=== PATIENT | male | born 1990 | race Caucasian/White ===

== ENCOUNTER 2018-07-09 18:59 | Emergency (ER) | payer SELFPAY ==
[2018-07-09 20:01] VITALS: BP 144/81
--- NOTE | 2018-07-09 20:16 | UC ---
Skin Complaint HPI - HPI Summary HPI Summary: Pt c/o of worsening tender lump at top of gluteal fold X 3 days. - History of Current Complaint Chief Complaint: UCSkin Time Seen by Provider: 07/09/18 20:10 Stated Complaint: SKIN CONCERN Hx Obtained From: Patient Onset/Duration: Gradual Onset, Lasting Days, Still Present, Worse Since - onset Skin Exposure Onset/Duration: Days Ago Onset Severity: Mild Current Severity: Moderate Pain Intensity: 3 Location: Discrete - upper gluteal fold Character: Pain, Redness, Raised, Painful Aggravating Factor(s): Touch Alleviating Factor(s): Nothing Associated Signs & Symptoms: Positive: Negative - Allergy/Home Medications Allergies/Adverse Reactions: Allergies Allergy/AdvReac Type Severity Reaction Status Date / Time No Known Allergies Allergy Verified 07/09/18 19:54 Home Medications: Home Medications Acetaminophen [Tylenol Extra Strength] 1,000 mg PO Q6H PRN 07/09/18 [History Confirmed 07/09/18] Neomycn/Bacitrc/Polymyx/Pramox [Antibiotic + Pain Relief Oint] 28 gm TP DAILY PRN 07/09/18 [History Confirmed 07/09/18] PMH/Surg Hx/FS Hx/Imm Hx Previously Healthy: Yes - Surgical History Surgical History: None Surgery Procedure, Year, and Place: denies - Family History Known Family History: Positive: Other - father with multiple health issues - Social History Occupation: Employed Full-time Lives: With Family Alcohol Use: Rare Substance Use Type: None Smoking Status (MU): Former Smoker Type: eCigarettes Have You Smoked in the Last Year: No Review of Systems All Other Systems Reviewed And Are Negative: Yes Constitutional: Positive: Negative Skin: Positive: Other - tender raised area Eyes: Positive: Negative ENT: Positive: Negative Respiratory: Positive: Negative Cardiovascular: Positive: Negative Gastrointestinal: Positive: Negative Genitourinary: Positive: Negative Motor: Positive: Negative Neurovascular: Positive: Negative Musculoskeletal: Positive: Negative Neurological: Positive: Negative Psychological: Positive: Negative Is Patient Immunocompromised?: No Physical Exam Triage Information Reviewed: Yes Appearance: Well-Appearing, Pain Distress Vital Signs: Initial Vital Signs Temp 99.3 F 07/09/18 19:56 Pulse 101 07/09/18 19:56 Resp 22 07/09/18 19:56 BP 144/81 07/09/18 19:56 Pulse Ox 100 02/15/19 19:56 Vital Signs Reviewed: Yes Eye Exam: Normal ENT Exam: Normal Dental Exam: Normal Respiratory: Positive: No respiratory distress Musculoskeletal Exam: Normal Neurological Exam: Normal Psychological Exam: Normal Skin Exam: Other - pilonidal cyst left upper buttock gluteal fold Course/Dx - Course Course Of Treatment: I discussed follwoing up with a general surgeon and pt declined due to lack of insurance. - Differential Diagnoses - Skin Complaint Differential Diagnoses: Abscess - Diagnoses Provider Diagnosis: Pilonidal abscess of sahra cleft Discharge - Sign-Out/Discharge Documenting (check all that apply): Patient Departure All imaging exams completed and their final reports reviewed: No Studies - Discharge Plan Condition: Stable Disposition: HOME Prescriptions: Ibuprofen TAB* [Motrin TAB* 800 MG] 800 mg PO Q8H PRN #21 tab PRN Reason: Pain Sulfamethox/Trimethoprim DS* [Bactrim DS 800/160 TAB*] 1 tab PO Q12H #20 tab Patient Education Materials: Pilonidal Cyst (ED), Warm Compress or Soak (ED) Referrals: [facility] [Outside] - If Needed No Primary Care Phys,NOPCP [Primary Care Provider] - Additional Instructions: Please follow up with a PCP and please register for Health insurance - Billing Disposition and Condition Condition: STABLE Disposition: Home - Attestation Statements Provider Attestation: Per institutional requirements, I have reviewed the chart, however, I was not consulted specifically or made aware of this patient by the midlevel provider. I did not personally evaluate, interact with , or disposition this patient.
== END 2018-07-09 20:28 | disposition home or self-care (01) ==
LOC: UCCORT 18:59
DX: L05.01 Pilonidal cyst with abscess (principal); Z87.891 Personal history of nicotine dependence
CPT/HCPCS: 99212; G0463

== ENCOUNTER 2018-08-23 16:51 | Emergency (ER) | payer SELFPAY ==
[2018-08-23 17:20] VITALS: BP 137/75
--- NOTE | 2018-08-23 17:27 | UC ---
Skin Complaint HPI - HPI Summary HPI Summary: 27-year-old male presents with complaints of tender, red, inflamed area to his right upper inner arm that started 5 days ago. States it initially started as a small "pimple-like" area that has progressively worsened especially over the last 3 days. Patient has been doing some hot packing but noticed no drainage. States he has a long-standing history of recurrent folliculitis and has had a previous abscess to his buttocks that required drainage. No known history of MRSA. Denies fever or chills. - History of Current Complaint Chief Complaint: UCSkin Time Seen by Provider: 08/23/18 17:16 Stated Complaint: RIGHT ARM SKIN CONCERN Hx Obtained From: Patient Pain Intensity: 9 - Allergy/Home Medications Allergies/Adverse Reactions: Allergies Allergy/AdvReac Type Severity Reaction Status Date / Time No Known Allergies Allergy Verified 08/23/18 17:20 Home Medications: Home Medications Ibuprofen TAB* [Motrin TAB* 800 MG] 600 mg PO Q8H PRN 08/23/18 [History] PMH/Surg Hx/FS Hx/Imm Hx Previously Healthy: Yes - Denies significant PMH - Surgical History Surgical History: None Surgery Procedure, Year, and Place: denies - Family History Known Family History: Positive: Other - father with multiple health issues - Social History Occupation: Employed Full-time Lives: Alone Alcohol Use: Rare Substance Use Type: None Smoking Status (MU): Former Smoker Type: eCigarettes Have You Smoked in the Last Year: No Review of Systems All Other Systems Reviewed And Are Negative: Yes Constitutional: Negative: Fever, Chills Skin: Positive: Other - See HPI Respiratory: Positive: Negative Cardiovascular: Positive: Negative Gastrointestinal: Positive: Negative Genitourinary: Positive: Negative Musculoskeletal: Positive: Negative Neurological: Positive: Negative Is Patient Immunocompromised?: No Physical Exam - Summary Physical Exam Summary: GENERAL APPEARANCE: Well developed, well nourished, alert and cooperative, and appears to be in no acute distress. CARDIAC: Normal S1 and S2. No S3, S4 or murmurs. Rhythm is regular. There is no peripheral edema, cyanosis or pallor. Extremities are warm and well perfused. Capillary refill is less than 2 seconds. Peripheral pulses intact. LUNGS: Clear to auscultation without rales, rhonchi, wheezing or diminished breath sounds. ABDOMEN: Positive bowel sounds. Soft, nondistended, nontender. No guarding or rebound. No masses or hepatosplenomegally. MUSKULOSKELETAL: ROM intact to all extremities. No joint erythema or tenderness. Normal muscular development. Normal gait. SKIN: 6 cm x 5 cm tender, erythematous, indurated area to the right upper inner arm with a 3 cm x 2.5 cm area of fluctuance centrally. Triage Information Reviewed: Yes Vital Signs: Initial Vital Signs Temp 99.3 F 08/23/18 17:17 Pulse 83 08/23/18 17:17 Resp 16 08/23/18 17:17 BP 137/75 08/23/18 17:17 Pulse Ox 100 08/23/18 17:17 Vital Signs Reviewed: Yes Procedures - Procedure Summary Procedure Summary: PROCEDURE NOTE: Incision and drainage abscess right upper arm PROCEDURE: Informed consent was obtained and timeout protocol was performed prior to initiating the procedure. The skin was prepped with Betadine and the area draped in the usual manner. The site was anesthetized with 10 ml 2% lidocaine with epinephrine. A 1.5 cm linear incision was made and a large amount of purulent material expressed. A wound culture was obtained and sent. The abscess was explored thoroughly and sequestered pockets were opened using forceps. The abscess tracked medially towards the axilla approximately 4 cm. The wound was packed with 1/4 in plain gauze dressing. A bulky gauze dressing was then placed. Bleeding was minimal. The patient tolerated the procedure well without complications. Standard post- procedure care is explained and return precautions were given. Course/Dx - Course Course Of Treatment: 27-year-old male presents with complaints of tender, red, inflamed area to his right upper inner arm that started 5 days ago. States it initially started as a small "pimple-like" area that has progressively worsened especially over the last 3 days. Patient has been doing some hot packing but noticed no drainage. States he has a long-standing history of recurrent folliculitis and has had a previous abscess to his buttocks that required drainage. No known history of MRSA. Denies fever or chills. Afebrile. Vital signs stable. Exam was remarkable for a 6 cm x 5 cm area of erythema, induration, and tenderness with a 3 cm x 2.5 cm area of fluctuance located centrally to the right upper inner arm. An incision and drainage was performed and a large amount of purulent drainage was expressed from the wound. The wound was explored and the abscess was noted to track medially towards the axilla approximately 4-5 cm. A wound culture was obtained and is pending. The wound was packed with 1/4 inch sterile gauze and a bulky gauze dressing was placed over the wound. Will start the patient on Bactrim DS 1 tab twice a day 7 days. Patient is to return in 2 days for a wound check and to have the packing removed. Considering the size and depth of the abscess that may need to be repacked at that time. Wound care , anticipatory guidance, and warning symptoms requiring evaluation in the emergency room were all reviewed with the patient. Verbalizes understanding and agrees with plan of care. - Differential Diagnoses - Skin Complaint Differential Diagnoses: Abscess, Cellulitis, Contact Dermatitis, Local Allergic Reaction, MRSA, Tinea - Diagnoses Provider Diagnosis: Abscess of right arm Discharge - Sign-Out/Discharge Documenting (check all that apply): Patient Departure All imaging exams completed and their final reports reviewed: No Studies - Discharge Plan Condition: Stable Disposition: HOME Prescriptions: Sulfamethox/Trimethoprim DS* [Bactrim DS 800/160 TAB*] 1 tab PO BID #14 tab Patient Education Materials: Abscess (ED) Referrals: No Primary Care Phys,NOPCP [Primary Care Provider] - Additional Instructions: We performed an incision and drainage of an abscess from your right upper inner arm. A wound culture was obtained and sent to the lab to see what bacteria grows out and to make sure the antibiotic you will be prescribed is appropriate to treat the infection. We will contact you if there is any change in your plan of care. Start Bactrim DS 1 tab twice a day for 7 days. Be sure to complete the entire course unless directed otherwise. Take acetaminophen (Tylenol) or ibuprofen (Advil, Motrin) according to directions as needed for pain. Leave the dressing that was applied in the clinic today in place for the next 24 hours. If there is some bleeding through the dressing simply add some more gauze. After 24 hours, you may remove the dressing and shower as usual. Avoid submerging the wound under water. Keep a dressing on the wound to absorb any drainage. This should be changed at least once daily or any time it becomes wet or soiled. Gauze packing was placed into the wound to help keep it open and allow the infection to drain. If the packing falls out accidentally do NOT try to re- insert. Simply leave to wound open. Return in 2 days for a wound check and to have the packing removed. Due to the size and depth of the abscess you may need to have this repacked at that time to allow for additional drainage. Seek immediate medical attention in the emergency room if you develop fever greater than 100.5 F, have severe pain not managed with pain medication, redness that continues to spread, increased swelling, or any worsening of symptoms. - Billing Disposition and Condition Condition: STABLE Disposition: Home
[2018-08-23] MEDS ORDERED: Lidocaine 2% W/EPI 1:100,000* 20 ML MDV INJ ONE (17:39)
--- NOTE | 2018-08-25 07:15 | UC ---
- Progress Note Progress Note: + MRSA 3+ staph on bactrim await sensitivity no change aarti 08/25 Course/Dx - Diagnoses Provider Diagnoses: Abscess of right arm Discharge - Sign-Out/Discharge Documenting (check all that apply): Post-Discharge Follow Up All imaging exams completed and their final reports reviewed: No Studies - Discharge Plan Condition: Stable Disposition: HOME Prescriptions: Sulfamethox/Trimethoprim DS* [Bactrim DS 800/160 TAB*] 1 tab PO BID #14 tab Patient Education Materials: Abscess (ED) Referrals: No Primary Care Phys,NOPCP [Primary Care Provider] - Additional Instructions: We performed an incision and drainage of an abscess from your right upper inner arm. A wound culture was obtained and sent to the lab to see what bacteria grows out and to make sure the antibiotic you will be prescribed is appropriate to treat the infection. We will contact you if there is any change in your plan of care. Start Bactrim DS 1 tab twice a day for 7 days. Be sure to complete the entire course unless directed otherwise. Take acetaminophen (Tylenol) or ibuprofen (Advil, Motrin) according to directions as needed for pain. Leave the dressing that was applied in the clinic today in place for the next 24 hours. If there is some bleeding through the dressing simply add some more gauze. After 24 hours, you may remove the dressing and shower as usual. Avoid submerging the wound under water. Keep a dressing on the wound to absorb any drainage. This should be changed at least once daily or any time it becomes wet or soiled. Gauze packing was placed into the wound to help keep it open and allow the infection to drain. If the packing falls out accidentally do NOT try to re- insert. Simply leave to wound open. Return in 2 days for a wound check and to have the packing removed. Due to the size and depth of the abscess you may need to have this repacked at that time to allow for additional drainage. Seek immediate medical attention in the emergency room if you develop fever greater than 100.5 F, have severe pain not managed with pain medication, redness that continues to spread, increased swelling, or any worsening of symptoms. - Billing Disposition and Condition Condition: STABLE Disposition: Home
== END 2018-08-23 18:35 | disposition home or self-care (01) ==
LOC: UCCORT 16:51
DX: L02.413 Cutaneous abscess of right upper limb (principal); Z87.891 Personal history of nicotine dependence
CPT/HCPCS: 10060; 87070; 87077; 87186; 87205; 87640; 87641; 99212; G0463

== ENCOUNTER 2018-09-25 15:54 | Emergency (ER) | payer SELFPAY ==
[2018-09-25 16:08] VITALS: BP 147/104
--- NOTE | 2018-09-25 16:28 | UC ---
Skin Complaint HPI - HPI Summary HPI Summary: left side of neck , boil presenting for 4 days, tenderness at top left buttocks , for past 2 days. History of MRSA - History of Current Complaint Chief Complaint: UCSkin Time Seen by Provider: 09/25/18 16:10 Stated Complaint: SKIN CONCERN - NECK Hx Obtained From: Patient Onset/Duration: Gradual Onset, Lasting Weeks Skin Exposure Onset/Duration: Weeks Ago Timing: Constant Onset Severity: Mild Current Severity: Mild Pain Intensity: 3 Character: Pruritus, Redness, Raised, Painful Aggravating Factor(s): Nothing Alleviating Factor(s): Nothing - Allergy/Home Medications Allergies/Adverse Reactions: Allergies Allergy/AdvReac Type Severity Reaction Status Date / Time No Known Allergies Allergy Verified 09/25/18 16:08 PMH/Surg Hx/FS Hx/Imm Hx Previously Healthy: Yes - Surgical History Surgical History: None Surgery Procedure, Year, and Place: denies - Family History Known Family History: Positive: Other - father with multiple health issues No family h/o MRSA, Non-Contributory - Social History Alcohol Use: Rare Substance Use Type: None Smoking Status (MU): Former Smoker Type: eCigarettes Have You Smoked in the Last Year: No Review of Systems All Other Systems Reviewed And Are Negative: Yes Skin: Positive: Rash Eyes: Positive: Negative ENT: Positive: Negative Respiratory: Positive: Negative Cardiovascular: Positive: Negative Gastrointestinal: Positive: Negative Genitourinary: Positive: Negative Motor: Positive: Negative Neurovascular: Positive: Negative Musculoskeletal: Positive: Negative Neurological: Positive: Negative Psychological: Positive: Negative Is Patient Immunocompromised?: No Physical Exam Vital Signs: Initial Vital Signs Temp 98.9 F 09/25/18 16:03 Pulse 98 09/25/18 16:03 Resp 16 09/25/18 16:03 BP 147/104 09/25/18 16:03 Pulse Ox 100 09/25/18 16:03 Course/Dx - Course Course Of Treatment: hx obtained, exam performed ,meds reviewed, draining abscess on buttocks, folliculitis of arms, legs and buttocks noted. red sebaceous cyst on left side of neck, that has been draining as well. - Differential Diagnoses - Skin Complaint Differential Diagnoses: Abscess - Diagnoses Provider Diagnosis: Folliculitis, Sebaceous cyst, Abscess of buttock Discharge - Sign-Out/Discharge Documenting (check all that apply): Patient Departure All imaging exams completed and their final reports reviewed: No Studies - Discharge Plan Condition: Stable Disposition: HOME Prescriptions: Sulfamethox/Trimethoprim DS* [Bactrim DS 800/160 TAB*] 1 tab PO BID #14 tab Patient Education Materials: Folliculitis (ED), Epidermal Inclusion Cysts (ED) Referrals: No Primary Care Phys,NOPCP [Primary Care Provider] - Alyx Aldrich [Medical Doctor] - Additional Instructions: 1. take the medication as prescribed. 2. Use the benzoyl peroxide body wash for a few weeks to clear up the folliculitis as well as a light moisturizer 3. allow the skin to air dry completely after a shower. 4. Follow up with dermatology about the cyst on the neck - Billing Disposition and Condition Condition: STABLE Disposition: Home
== END 2018-09-25 16:36 | disposition home or self-care (01) ==
LOC: UCCORT 15:54
DX: L73.9 Follicular disorder, unspecified (principal); L72.3 Sebaceous cyst; L02.31 Cutaneous abscess of buttock; Z87.891 Personal history of nicotine dependence
CPT/HCPCS: 99212; G0463

== ENCOUNTER 2018-10-26 18:24 | Emergency (ER) | payer SELFPAY ==
[2018-10-26 18:48] VITALS: BP 150/100
[2018-10-26] MEDS ORDERED: Mupirocin 2% OINT* TUBE TOPICAL ONE (19:04)
--- NOTE | 2018-10-26 19:08 | UC ---
Skin Complaint HPI - HPI Summary HPI Summary: 28-year-old male comes in with a chief complaint of a skin infection the left elbow. He noticed a bump couple days ago as gotten bigger. It is painful when he pushes on it. Just prior to arrival scab on it which he took off and then he expressed quite a bit of pus and then eventually blood. No fevers or chills. Patient has a history of MRSA. He's been having some skin issues in the past but is not seen a tourist cabin keeper. He is interested in seeing a tourist cabin keeper. The past Bactrim has worked to cure the infection. - History of Current Complaint Chief Complaint: UCSkin Time Seen by Provider: 10/26/18 18:52 Stated Complaint: LEFT ARM SKIN ISSUE Pain Intensity: 7 - Allergy/Home Medications Allergies/Adverse Reactions: Allergies Allergy/AdvReac Type Severity Reaction Status Date / Time No Known Allergies Allergy Verified 10/26/18 18:45 PMH/Surg Hx/FS Hx/Imm Hx Previously Healthy: Yes - MRSA - Surgical History Surgical History: None Surgery Procedure, Year, and Place: denies - Family History Known Family History: Positive: Other - father with multiple health issues No family h/o MRSA, Non-Contributory - Social History Alcohol Use: Rare Substance Use Type: None Smoking Status (MU): Former Smoker Type: eCigarettes Have You Smoked in the Last Year: No Review of Systems All Other Systems Reviewed And Are Negative: Yes Constitutional: Positive: Negative Skin: Positive: Other - SEE HPI Eyes: Positive: Negative ENT: Positive: Negative Respiratory: Positive: Negative Cardiovascular: Positive: Negative Gastrointestinal: Positive: Negative Motor: Positive: Negative Neurovascular: Positive: Negative Musculoskeletal: Positive: Negative Neurological: Positive: Negative Psychological: Positive: Negative Is Patient Immunocompromised?: No Physical Exam Triage Information Reviewed: Yes Appearance: Well-Appearing, No Pain Distress, Well-Nourished Vital Signs: Initial Vital Signs Temp 99.6 F 10/26/18 18:46 Pulse 86 10/26/18 18:46 Resp 18 10/26/18 18:46 BP 150/100 10/26/18 18:46 Pulse Ox 99 10/26/18 18:46 Vital Signs Reviewed: Yes Eye Exam: Normal Eyes: Positive: Conjunctiva Clear Neck: Positive: Supple Respiratory: Positive: No respiratory distress Musculoskeletal Exam: Normal Musculoskeletal: Positive: Strength Intact, ROM Intact Neurological Exam: Normal Neurological: Positive: Alert, Muscle Tone Normal Psychological: Positive: Age Appropriate Behavior Skin: Positive: Other - LEFT PROXIMAL LATERAL FOREARM; 5CM RAISED ERYTHEMA WITH 5MM OPEN SORE IN THE CENTER. MILDLY FIRM; NO DRAINABLE FLUCTUANCE. NO STREAKING. Course/Dx - Course Course Of Treatment: Patient has a history of MRSA. In the past she's been successfully treated with Bactrim. Prescribed 10 days of Bactrim. Also topical mupirocin. Today there was no fluctuant area for incision and drainage. if he got worse he needs to get reevaluated. We'll have him follow-up with dermatology. - Diagnoses Provider Diagnosis: Folliculitis, Cellulitis of arm, left, History of MRSA infection Discharge - Sign-Out/Discharge Documenting (check all that apply): Patient Departure All imaging exams completed and their final reports reviewed: No Studies - Discharge Plan Condition: Stable Disposition: HOME Prescriptions: Sulfamethox/Trimethoprim DS* [Bactrim DS 800/160 TAB*] 1 tab PO BID #20 tab Patient Education Materials: Cellulitis (ED), Folliculitis (ED) Referrals: [facility] [Outside] Niraj Salcido MD [Medical Doctor] - Alyx Aldrich [Medical Doctor] - Additional Instructions: FOLLOW UP WITH DERMATOLOGY. GET RECHECKED SOONER IF YOUR CONDITION WORSENS; FEVER, YOU FEEL ILL, SPREAD OF INFECTION OR ANY QUESTIONS OR CONCERNS. - Billing Disposition and Condition Condition: STABLE Disposition: Home
== END 2018-10-26 19:24 | disposition home or self-care (01) ==
LOC: UCCORT 18:24
DX: L73.9 Follicular disorder, unspecified (principal); L03.114 Cellulitis of left upper limb; Z87.891 Personal history of nicotine dependence; Z86.14 Personal history of Methicillin resistant Staphylococcus aureus infection
CPT/HCPCS: 99213; G0463